=== PATIENT | female | born 1965 | race Caucasian/White ===

== ENCOUNTER 2020-12-26 11:21 | Outpatient (CLI) | payer BC ==
[2020-12-26 18:02] LABS: SARS-CoV-2 PCR by NAA Not Detected (NotDetected)
== END 2020-12-26 11:22 | disposition home or self-care (01) ==
LOC: CSHLAB 11:21
PROVIDERS: ATTEND Surgery
DX: Z20.822 Contact with and (suspected) exposure to COVID-19 (principal)
CPT/HCPCS: 87635; U0003; U0005

== ENCOUNTER 2024-08-11 14:03 | Outpatient (CLI) | payer BC | END 2024-08-11 14:04 | disposition home or self-care (01) | LOC: CSHULT 14:03 | PROVIDERS: ATTEND Nurse Practitioner Family | DX: R10.2 Pelvic and perineal pain (principal) | CPT/HCPCS: 76856 ==